=== PATIENT | female | born 1945 | race Caucasian/White ===

== ENCOUNTER 2020-04-08 12:06 | Outpatient (REF) | payer MEDICARE, SELFPAY ==
[2020-04-08 12:56] LABS: MANUAL DIFF FLAG NO
[2020-04-08 13:02] LABS: Basophils Percent Auto 0.5 % (0-2); Eosinophils Absolute Auto 0.4 X10*3/uL (0.0-0.4); Eosinophils Percent Auto 4.6 % (0-4); Hematocrit 41.9 % (37-47); Hemoglobin 14.1 g/dl (12.0-16.0); Imm Gran Abs Auto 0.02 X10*3/uL (0.00-0.03); Imm Gran Pct Auto 0.3 % (0.0-0.4); Lymphocytes Absolute Auto 1.2 X10*3/uL (1.2-4.9); Lymphocytes Percent Auto 14.8 % (20-40); Mean Corpuscular HGB Conc 33.7 g/dl (31.0-35.0); Mean Corpuscular Hemoglobin 33.3 pg (27.0-33.0); Mean Corpuscular Volume 98.8 fL (80-98); Mean Platelet Volume 10.4 fL (9.4-12.3); Monocytes Absolute Auto 0.6 X10*3/uL (0.1-1.2); Monocytes Percent Auto 7.5 % (2-11); Neutrophils Absolute Auto 5.6 X10*3/uL (2.0-8.3); Neutrophils Percent Auto 72.3 % (45-73); Platelet Count 246 X10*3/uL (160-400); Red Blood Count 4.24 X10*6/uL (4.20-5.50); White Blood Count 7.8 X10*3/uL (4.8-10.8)
[2020-04-08 13:43] LABS: Erythrocyte Sedimentation Rate 13 MM/HR (0-20)
[2020-04-08 14:12] LABS: Alanine Aminotransferase 16 U/L (0-31); Albumin Level 4.4 g/dL (3.5-5.0); Alkaline Phosphatase 57 U/L (39-117); Amylase 55 U/L (28-100); Anion Gap 15 (12-20); Aspartate Amino Transferase 21 U/L (5-31); Bilirubin Total 0.5 mg/dL (0.0-1.0); Blood Urea Nitrogen 18 mg/dL (9-16); C Reactive Protein 0.39 mg/dL (< or = 0.50); Calcium 9.1 mg/dL (8.4-10.2); Carbon Dioxide 30 mmol/L (22-29); Chloride 102 mmol/L (96-108); Estimated Glomerular Filt Rate > 60; Glucose Random 102 mg/dL (60-115); Lipase 39 U/L (8-78); Potassium 4.5 mmol/L (3.3-5.1); Sodium 142 mmol/L (135-145); Total Protein 6.9 g/dL (6.5-8.0)
== END 2020-04-08 12:07 | disposition home or self-care (01) ==
LOC: HO.MANLDS 12:06
PROVIDERS: PCP Internal Medicine; Visit Provider Physician Assistant
DX: R10.11 Right upper quadrant pain (principal)
CPT/HCPCS: 36415; 80053; 82150; 83690; 85025; 85652; 86140

== ENCOUNTER 2020-05-20 14:19 | Outpatient (REF) | payer MEDICARE, SELFPAY ==
[2020-05-20 17:42] LABS: MANUAL DIFF FLAG NO
[2020-05-20 18:04] LABS: Alanine Aminotransferase 19 U/L (0-31); Albumin Level 4.3 g/dL (3.5-5.0); Alkaline Phosphatase 57 U/L (39-117); Anion Gap 14 (12-20); Aspartate Amino Transferase 21 U/L (5-31); Bilirubin Total 0.5 mg/dL (0.0-1.0); Blood Urea Nitrogen 16 mg/dL (9-16); Calcium 8.6 mg/dL (8.4-10.2); Carbon Dioxide 33 mmol/L (22-29); Chloride 101 mmol/L (96-108); Estimated Glomerular Filt Rate > 60; Glucose Random 91 mg/dL (60-115); Potassium 4.3 mmol/L (3.3-5.1); Sodium 144 mmol/L (135-145); Total Protein 6.6 g/dL (6.5-8.0)
[2020-05-20 18:07] LABS: Basophils Absolute Auto 0.1 X10*3/uL (0.0-0.2); Basophils Percent Auto 0.9 % (0-2); Eosinophils Absolute Auto 0.4 X10*3/uL (0.0-0.4); Eosinophils Percent Auto 4.9 % (0-4); Hematocrit 40.3 % (37-47); Hemoglobin 13.7 g/dl (12.0-16.0); Imm Gran Abs Auto 0.04 X10*3/uL (0.00-0.03); Imm Gran Pct Auto 0.4 % (0.0-0.4); Lymphocytes Absolute Auto 1.7 X10*3/uL (1.2-4.9); Lymphocytes Percent Auto 18.4 % (20-40); Mean Corpuscular Hemoglobin 32.9 pg (27.0-33.0); Mean Corpuscular Volume 96.6 fL (80-98); Mean Platelet Volume 10.9 fL (9.4-12.3); Monocytes Absolute Auto 0.8 X10*3/uL (0.1-1.2); Monocytes Percent Auto 8.8 % (2-11); Neutrophils Percent Auto 66.6 % (45-73); Platelet Count 243 X10*3/uL (160-400); Red Blood Count 4.17 X10*6/uL (4.20-5.50); Red Cell Distribution Width 12.2 % (11.0-16.0)
[2020-05-20 18:55] LABS: Erythrocyte Sedimentation Rate 13 MM/HR (0-20)
== END 2020-05-20 14:20 | disposition home or self-care (01) ==
LOC: HO.MANLDS 14:19
PROVIDERS: PCP Internal Medicine; Visit Provider Internal Medicine
DX: R10.9 Unspecified abdominal pain (principal)
CPT/HCPCS: 36415; 80053; 85025; 85652

== ENCOUNTER 2020-06-04 07:46 | Outpatient (REF) | payer MEDICARE, OTHER, SELFPAY ==
[2020-06-04 11:15] LABS: MANUAL DIFF FLAG NO
[2020-06-04 11:37] LABS: Basophils Absolute Auto 0.1 X10*3/uL (0.0-0.2); Basophils Percent Auto 1.3 % (0-2); Eosinophils Absolute Auto 0.6 X10*3/uL (0.0-0.4); Eosinophils Percent Auto 9.3 % (0-4); Hematocrit 44.8 % (37-47); Imm Gran Abs Auto 0.02 X10*3/uL (0.00-0.03); Imm Gran Pct Auto 0.3 % (0.0-0.4); Lymphocytes Absolute Auto 1.2 X10*3/uL (1.2-4.9); Lymphocytes Percent Auto 20.6 % (20-40); Mean Corpuscular HGB Conc 33.5 g/dl (31.0-35.0); Mean Corpuscular Hemoglobin 31.9 pg (27.0-33.0); Mean Corpuscular Volume 95.3 fL (80-98); Mean Platelet Volume 11.3 fL (9.4-12.3); Monocytes Absolute Auto 0.5 X10*3/uL (0.1-1.2); Neutrophils Absolute Auto 3.6 X10*3/uL (2.0-8.3); Neutrophils Percent Auto 60.5 % (45-73); Platelet Count 281 X10*3/uL (160-400); Red Cell Distribution Width 11.9 % (11.0-16.0)
[2020-06-04 12:15] LABS: Alanine Aminotransferase 20 U/L (0-31); Albumin Level 4.4 g/dL (3.5-5.0); Alkaline Phosphatase 54 U/L (39-117); Anion Gap 14 (12-20); Aspartate Amino Transferase 20 U/L (5-31); Bilirubin Total 0.8 mg/dL (0.0-1.0); Blood Urea Nitrogen 13 mg/dL (9-16); Calcium 9.2 mg/dL (8.4-10.2); Carbon Dioxide 30 mmol/L (22-29); Chloride 103 mmol/L (96-108); Cholesterol 215 mg/dL; Estimated Glomerular Filt Rate > 60; Glucose Fasting 93 mg/dL (60-99); HDL Cholesterol 84 mg/dL; LDL Cholesterol Calculated 109 mg/dl; Potassium 4.7 mmol/L (3.3-5.1); Sodium 142 mmol/L (135-145); Total Protein 6.8 g/dL (6.5-8.0); Triglycerides 112 mg/dL
== END 2020-06-04 07:47 | disposition home or self-care (01) ==
LOC: HO.MANLDS 07:46
PROVIDERS: PCP Internal Medicine; Visit Provider Physician Assistant
DX: Z13.6 Encounter for screening for cardiovascular disorders (principal); J45.909 Unspecified asthma, uncomplicated
CPT/HCPCS: 36415; 80053; 80061; 85025

== ENCOUNTER 2020-06-05 10:42 | Outpatient (REF) | payer MEDICARE, OTHER, SELFPAY ==
[2020-06-05 13:45] LABS: Iron 90 mcg/dL (30-160); Percent Iron Saturation 32 % (15-50); Total Iron Binding Capacity 279 mcg/dL (228-428); Unsaturated Iron Binding 189 ug/dL
[2020-06-05 14:06] LABS: Ferritin 173 ng/mL (10-250); Free T4 (Free Thyroxine) 1.13 ng/dL (0.71-1.85); Thyroid Stimulating Hormone 0.59 uIU/mL (0.32-4.0); Vitamin D 25-OH Total 59.7 ng/mL (>30)
== END 2020-06-05 10:43 | disposition home or self-care (01) ==
LOC: HO.MANLDS 10:42
PROVIDERS: PCP Internal Medicine; Visit Provider Physician Assistant
DX: L65.9 Nonscarring hair loss, unspecified (principal)
CPT/HCPCS: 36415; 82306; 82728; 83540; 84439; 84443

== ENCOUNTER 2020-06-30 08:54 | Emergency (ER) | payer MEDICARE, OTHER, SELFPAY ==
--- NOTE | ~2020-06-30 | US_ITS ---
EXAMINATION: US VENOUS WITH DOPPLER UPPER EXTREMITY, LEFT CLINICAL INFORMATION: Left upper extremity pain and swelling. History of IV access 06/23/2020 COMPARISON: None TECHNIQUE: Ultrasound of the upper extremity is performed using compression sonography and color and pulse Doppler flow with assessment of augmentation of flow. There is also imaging and Doppler assessment of the jugular and subclavian veins. Spectral analysis with color-flow imaging is performed. FINDINGS: Respiratory variation, normal compression, and augmented flow are noted within the left internal jugular vein. The left subclavian vein demonstrates normal color and spectral Doppler imaging consistent with patency. The left axillary vein demonstrates normal compressibility and color flow consistent with patency. The majority of the brachial vein demonstrates normal compressibility and color flow consistent with patency. The distal most aspect of the brachial vein within the antecubital fossa is dilated, demonstrates internal echogenicities, is noncompressible and demonstrate no color flow. The left basilic and cephalic veins demonstrates normal color flow and compressibility consistent with patency. The radial and ulnar veins are easily compressible consistent with patency. US/US venous duplex UE LT IMPRESSION: Occlusive thrombus identified in the distal most aspect of the brachial vein within the antecubital fossa. The remainder of the deep venous system of the left upper extremity is widely patent. This Critical Result was discussed with SARAH Buckley at 11:13 AM on 06/30/2020 and it was ascertained that the content and urgency of the report was understood at the time of direct communication.
[2020-06-30 08:58] VITALS: BP 143/60; PULSE 72; RESP 16; TEMP 36.6; O2SAT 94; BMI 29.4
--- NOTE | 2020-06-30 09:20 | ED.GENADULT ---
HPI - General Adult General Chief complaint: General Medical Stated complaint: L ARM RED AND SWELLING Time Seen by Provider: 06/30/20 09:16 Source: patient and family Mode of arrival: ambulatory Limitations: no limitations History of Present Illness HPI narrative: 75 y/o female with history of asthma and recent admission to [facility] last week for the same presents to the ER with left arm pain, redness and swelling where a prior IV was in place. She states it started the day after she was discharged, about 4 days ago. They called the unit she was hospitalized on who advised her to use over the counter antibiotic cream, warm and cold compresses and call her doctor. She has been using the compresses with improvement in the size of the redness but the pain persists. Her PCP office is closed today so she came to the ER for further evaluation. She denies fever, chills, and numbness, weakness, or tingling in her left arm. She has normal ROM of the left elbow. Pain is worse with palpation and flexion. MD complaint: LUE pain & redness Onset (ago): day(s) (4) Location: left and upper extremity Radiation: non-radiation Severity: moderate Quality: aching Pain Consistency: constant Relieving factors: cold therapy Exacerbating factors: movement Associated symptoms: denies other symptoms Treatments prior to arrival: cold therapy Related Data Previous Rx's Medication Instructions Recorded apixaban 5 mg PO PER PKG DIR #74 ea 06/30/20 Allergies Allergy/AdvReac Type Severity Reaction Status Date / Time Unable to Assess Allergy Unverified 06/30/20 09:19 Review of Systems Review of Systems: Constitutional: No Fever, No Chills Cardiovascular: No Chest Pain, No SOB Respiratory: No Cough, No Sputum, No Wheezing Gastrointestinal: No Nausea, No Vomiting Musculoskeletal: No joint pain, No Myalgias Skin: + Skin Lesions, + rash Neuro: No Weakness, No Numbness Heme/Lymph: No Bruising, No Lymphadenopathy PMFSH Past Medical History Medical History (Updated 06/30/20 @ 11:28 by SARAH Buckley) Asthma Social History Social History Advance Directives: Yes Advance Directives Information Provided: Yes Advance Directives on File: No Physical Exam Vital Signs: Vital Signs: Last Vital Signs Temp 97.8 F 06/30/20 08:58 Pulse 72 06/30/20 08:58 Resp 16 06/30/20 08:58 BP 143/60 H 06/30/20 08:58 Pulse Ox 94 06/30/20 08:58 Body Mass Index 29.4 Appearance: Alert. Oriented X3. No acute distress. HEENT: normal inspection CVS: Normal heart rate and rhythm. Pulses normal. Respiratory: No respiratory distress. CTAB, no wheezing. Skin: Skin warm and dry. Normal skin color. Normal skin turgor. No rashes. Extremities: left arm with erythema and warmth of anticubital fossa with indurated area centrally, no fluctance. tender to touch. Normal ROM of elbow, no dorsal tenderness of the joint. NV intact distally. Neuro: Oriented X 3. No motor deficit. No sensory deficit. Course Course Course Narrative: 75 y/o female presenting with LUE redness and pain at recent IV site. Exam and clinical presentation is consistent with superficial thrombophlebitis. Will get U/S to r/o DVT and abscess formation. Reevaluation(s) Reevaluation #1: US showing distal brachial vein with thrombus consistent with DVT. Spoke with Radiologist. Will treat for DVT with Eliquis. Patient has been counseled on diagnosis, management and need for close follow up with her PCP. She is stable for discharge. Discharge Plan Discharge Clinical Impression: Arm DVT (deep venous thromboembolism), acute Qualifiers: Laterality: left Qualified Code(s): I82.622 - Acute embolism and thrombosis of deep veins of left upper extremity Patient Disposition: Home, Self-Care Instructions: Apixaban (By mouth), Deep Vein Thrombosis (ED) Additional Instructions: Your ultrasound today showed a small blood clot in the brachial vein in your left arm. This is considered a deep vein and therefore requires treatment with blood thinners. You are being prescribed 1 month worth of apixaban, also known as Eliquis. Take it as prescribed on the packaging. There is an increased risk of bleeding while on this medication. Follow up with your doctor this week. If you have worsening symptoms of if you develop shortness of breath or chest pain come back to the ER for further evaluation. Prescriptions: New apixaban 5 mg (74 tabs) tablets,dose pack 5 mg PO PER PKG DIR Qty: 74 RF: 0 Referrals: Rodney Gutierrez MD [Primary Care Provider] - 2 days (LUE DVT, provoked by PIV & hospitalization )
== END 2020-06-30 11:42 | disposition home or self-care (01) ==
PROVIDERS: Emergency Provider Emergency Medicine; PCP Internal Medicine
DX: I82.622 Acute embolism and thrombosis of deep veins of left upper extremity (principal); M79.622 Pain in left upper arm; Z79.899 Other long term (current) drug therapy
CPT/HCPCS: 93971; 99283

== ENCOUNTER 2021-06-17 07:31 | Outpatient (REF) | payer MEDICARE, OTHER, SELFPAY ==
[2021-06-17 11:06] LABS: MANUAL DIFF FLAG NO
[2021-06-17 11:21] LABS: Basophils Absolute Auto 0.1 X10*3/uL (0.0-0.2); Eosinophils Absolute Auto 0.7 X10*3/uL (0.0-0.4); Eosinophils Percent Auto 9.4 % (0-4); Hematocrit 43.3 % (37.0-47.0); Hemoglobin 14.2 g/dl (12.0-16.0); Imm Gran Abs Auto 0.03 X10*3/uL (0.00-0.03); Imm Gran Pct Auto 0.4 % (0.0-0.4); Lymphocytes Absolute Auto 1.3 X10*3/uL (1.2-4.9); Lymphocytes Percent Auto 18.7 % (20-40); Mean Corpuscular HGB Conc 32.8 g/dl (31.0-35.0); Mean Corpuscular Hemoglobin 32.4 pg (27.0-33.0); Mean Corpuscular Volume 98.9 fL (80.0-98.0); Mean Platelet Volume 10.8 fL (9.4-12.3); Monocytes Absolute Auto 0.6 X10*3/uL (0.1-1.2); Monocytes Percent Auto 8.3 % (2-11); Neutrophils Absolute Auto 4.4 x10*3/uL (2.0-8.3); Neutrophils Percent Auto 62.2 % (45-73); Platelet Count 245 X10*3/uL (160-400); Red Blood Count 4.38 X10*6/uL (4.20-5.50); Red Cell Distribution Width 12.8 % (11.0-16.0); White Blood Count 7.1 X10*3/uL (4.8-10.8)
[2021-06-17 11:52] LABS: Alanine Aminotransferase 15 U/L (0-31); Albumin Level 4.3 g/dL (3.5-5.0); Alkaline Phosphatase 57 U/L (39-117); Anion Gap 12 (12-20); Aspartate Amino Transferase 18 U/L (5-31); Bilirubin Total 0.8 mg/dL (0.0-1.0); Blood Urea Nitrogen 13 mg/dL (9-16); Calcium 9.2 mg/dL (8.4-10.2); Carbon Dioxide 31 mmol/L (22-29); Chloride 105 mmol/L (96-108); Cholesterol 247 mg/dL; Estimated Glomerular Filt Rate > 60; Glucose Fasting 95 mg/dL (60-99); HDL Cholesterol 113 mg/dL; LDL Cholesterol Calculated 121 mg/dl; Potassium 4.4 mmol/L (3.3-5.1); Sodium 144 mmol/L (135-145); Total Protein 6.8 g/dL (6.5-8.0); Triglycerides 65 mg/dL
[2021-06-17 12:04] LABS: Vitamin B12 497 pg/mL (200-900)
[2021-06-17 12:12] LABS: Vitamin D 25-OH Total 62.9 ng/mL (>30)
== END 2021-06-17 07:32 | disposition home or self-care (01) ==
LOC: HO.MANLDS 07:31
PROVIDERS: PCP Internal Medicine; Visit Provider Internal Medicine
DX: C50.112 Malignant neoplasm of central portion of left female breast (principal)
CPT/HCPCS: 36415; 80053; 80061; 82306; 82607; 85025

== ENCOUNTER 2022-07-28 | Outpatient (REF) | payer MEDICARE, OTHER, SELFPAY ==
[2022-07-28 14:28] LABS: MANUAL DIFF FLAG NO
[2022-07-28 14:36] LABS: Basophils Absolute Auto 0.1 X10*3/uL (0.0-0.2); Basophils Percent Auto 0.9 % (0-2); Eosinophils Absolute Auto 0.5 X10*3/uL (0.0-0.4); Eosinophils Percent Auto 6.8 % (0-4); Hematocrit 44.1 % (37.0-47.0); Hemoglobin 14.5 g/dl (12.0-16.0); Imm Gran Abs Auto 0.03 X10*3/uL (0.00-0.03); Imm Gran Pct Auto 0.4 % (0.0-0.4); Lymphocytes Absolute Auto 1.1 X10*3/uL (1.2-4.9); Mean Corpuscular HGB Conc 32.9 g/dl (31.0-35.0); Mean Corpuscular Hemoglobin 32.2 pg (27.0-33.0); Mean Platelet Volume 10.7 fL (9.4-12.3); Monocytes Absolute Auto 0.7 X10*3/uL (0.1-1.2); Monocytes Percent Auto 9.1 % (2-11); Neutrophils Percent Auto 67.8 % (45-73); Platelet Count 240 X10*3/uL (160-400); Red Cell Distribution Width 12.8 % (11.0-16.0); White Blood Count 7.4 X10*3/uL (4.8-10.8)
[2022-07-28 14:44] LABS: D Dimer High Sensitivity 158 NG/ML
[2022-07-28 14:45] LABS: Estimated Average Glucose 105 mg/dL; Hemoglobin A1c % 5.3 %
[2022-07-28 15:10] LABS: Alanine Aminotransferase 16 U/L (0-31); Albumin Level 4.3 g/dL (3.5-5.0); Alkaline Phosphatase 56 U/L (39-117); Anion Gap 16 (12-20); Aspartate Amino Transferase 19 U/L (5-31); Bilirubin Total 1.2 mg/dL (0.0-1.0); Blood Urea Nitrogen 19 mg/dL (9-16); C Reactive Protein 0.57 mg/dL (< or = 0.50); Calcium 9.4 mg/dL (8.4-10.2); Carbon Dioxide 27 mmol/L (22-29); Chloride 103 mmol/L (96-108); Estimated Glomerular Filt Rate > 60; Glucose Random 101 mg/dL (60-115); Iron 158 mcg/dL (30-160); Magnesium 2.1 mg/dL (1.6-2.6); Percent Iron Saturation 50 % (15-50); Potassium 4.1 mmol/L (3.3-5.1); Sodium 142 mmol/L (135-145); Total Iron Binding Capacity 315 mcg/dL (228-428); Total Protein 7.2 g/dL (6.5-8.0); Unsaturated Iron Binding 157 ug/dL
[2022-07-28 15:20] LABS: Folate 16.8 ng/mL (> or = 4.0); Vitamin B12 783 pg/mL (200-900)
[2022-07-28 15:23] LABS: Erythrocyte Sedimentation Rate 8 MM/HR (0-20)
[2022-07-28 15:27] LABS: Ferritin 170 ng/mL (10-250); Free T4 (Free Thyroxine) 1.01 ng/dL (0.71-1.85); Thyroid Stimulating Hormone 0.43 uIU/mL (0.32-4.0); Vitamin D 25-OH Total 70.6 ng/mL (>30)
[2022-08-01 01:24] LABS: Zinc 73 mcg/dL (60-130)
[2022-08-03 22:09] LABS: NT-proBNP 189 pg/mL (<450)
== END 2022-07-28 00:01 | disposition home or self-care (01) ==
LOC: HO.MANLDS
PROVIDERS: Visit Provider Physician Assistant
DX: R53.83 Other fatigue (principal); R06.02 Shortness of breath; R42 Dizziness and giddiness; R19.5 Other fecal abnormalities
CPT/HCPCS: 80053; 82306; 82607; 82728; 82746; 83036; 83540; 83735; 83880; 84439; 84443; 84630; 85025; 85379; 85652; 86140; 86618; 86666; 86753